=== PATIENT | male | born 1950 ===

== ENCOUNTER 2019-05-14 21:02 | Inpatient (IN) | payer MEDICARE ==
[~2019-05-14] VITALS: Ht 177.8 cm; Wt 115.6 kg
[2019-05-14] MEDS ORDERED: ACET325 PO (21:29)
[2019-05-14] MEDS ORDERED: AMLO5 PO (21:29)
[2019-05-14] MEDS ORDERED: SERT25 PO (21:29)
[2019-05-14] MEDS ORDERED: ATOR10 PO (21:30)
[2019-05-14] MEDS ORDERED: SYNTHROID175 MCG PO (21:30)
[2019-05-14] MEDS ORDERED: OMEP20ER PO (21:31)
[2019-05-14] MEDS ORDERED: CETI5 PO (21:31)
[2019-05-14] MEDS ORDERED: LISI20 PO (21:31)
[2019-05-14] MEDS ORDERED: CHOL10002 PO (21:32)
[2019-05-14 21:50] LABS: BASOPHILS ABSOLUTE AUTO 0.03 K/mm3 (0.00-0.23); BASOPHILS PERCENT AUTO 0 % (0-2); EOSINOPHILS PERCENT AUTO 0 % (0-6); Hematocrit 47.7 % (37.0-53.0); IMMATURE GRAN ABSOLUTE AUTO 0.07 K/mm3 (0.00-0.10); IMMATURE GRAN PERCENT AUTO 1 % (0-1); LYMPHOCYTES ABSOLUTE AUTO 0.76 K/mm3 (0.84-5.20); LYMPHOCYTES PERCENT AUTO 6 % (21-46); MONOCYTES ABSOLUTE AUTO 1.26 K/mm3 (0.16-1.47); MONOCYTES PERCENT AUTO 10 % (4-13); Mean Corpuscular HGB 30.8 pg (26.0-34.0); Mean Corpuscular HGB Conc 31.4 g/dL (31.5-36.5); Mean Corpuscular Volume 98 fL (80-100); Mean Platelet Volume 10.3 fL (9.1-12.4); NEUTROPHILS ABSOLUTE AUTO 10.27 K/mm3 (1.96-9.15); NEUTROPHILS PERCENT AUTO 83 % (41-73); Platelet Count 252 K/mm3 (150-400); RDW Coefficient Variation 14.5 % (11.7-14.2); RDW Standard Deviation 52.3 fL (35.1-46.3); Red Blood Cell Count 4.87 M/mm3 (4.30-5.90); White Blood Cell Count 12.39 K/mm3 (4.00-11.30)
[2019-05-14 22:07] LABS: Albumin, Blood 3.7 g/dL (3.4-5.0); Bilirubin, Total 1.4 mg/dL (0.1-1.0); Bun/Creatinine Ratio 25.4 (12.0-20.0); Calcium, Blood 8.9 mg/dL (8.5-10.1); Creatinine, Blood 1.3 mg/dL (0.60-1.20); Globulin, Blood 3.7 g/dL (2.2-4.0); Potassium, Blood 3.7 mmol/L (3.5-5.5); Total Protein, Blood 7.4 g/dL (6.4-8.2); Troponin I 0.152 ng/mL (0.000-0.040)
[2019-05-14 22:18] LABS: Source, Urine Clean Catch
[2019-05-14 22:20] LABS: Appearance, Urine Cloudy (Clear); Bilirubin, Urine Neg (Neg); Blood, Urine 5+ (Neg); Color, Urine Amber (P-Yellow); Glucose Qualitative, Urine Neg (Neg); Ketones, Urine 1+ (Neg); Leukocyte Esterase, Urine 3+ (Neg); Nitrite, Urine Neg (Neg); Protein, Urine 4+ (Neg); Urobilinogen, Urine NORM (Normal)
[2019-05-14 22:25] LABS: Red Blood Cells, Urine 0-2 /hpf (0-2); White Blood Cells, Urine TNTC /hpf (0-5)
[2019-05-14 22:26] LABS: Bacteria Many /hpf; Squamous Epithelial Cells Not Seen /hpf (Few)
[2019-05-14 23:11] LABS: Creatine Kinase MB 57.8 ng/mL (0.0-3.6); Creatine Kinase MB Index 0.8 (0.0-4.0)
--- NOTE | 2019-05-15 03:15 | NUR ---
INITIAL ASSESSMENT PATIENT ARRIVED TO UNIT AT 0240. PATIENT ALERT AND ORIENTED X 4, HOWEVER APPEARS FORGETFUL AT TIMES AND MAKES STATEMENTS THAT ARE OUT OF CONTEXT FROM CONVERSATION. PATIENT DIAPHORETIC, FLUSHED. PATIENT STATES HE HAS N/T IN ALL EXTREMITIES. PATIENT AFEBRILE. PATIENT WEAK BUT ABLE TO MOVE ALL EXTREMITIES. PATIENT COMPLAINS OF PAIN IN R SHOULDER AND LEG. PATIENT FOUND DOWN AT HOME PRIOR TO ADMIT. PATIENT HAS DISCHARGE COMING FROM EYES. PATIENT SATTING 90% AND GREATER ON 2 L NC. UPPER LOBES CLEAR, LOWER LOBES DIMINISHED TO AUSCULTATION. CRACKLES NOTED IN LLL. PATIENT STATES THAT HE HAS BEEN COUGHING UP VARIED AMOUNTS OF THICK, GREEN PHLEGM. PATIENT IN SB WITH SECOND DEGREE, TYPE 1 BLOCK. HR 40S TO 50S. SBP 190S TO LOW 200S. TRACE EDEMA NOTED IN BUES. 1+ EDEMA NOTED IN BLES. ABDOMEN MODERATELY DISTENDED, SOFT, NONTENDER, WITH HYPOACTIVE BS. PATIENT STATES LAST BM ON THE . PATIENT STATES HE SELF CATHS AT HOME AROUND 4 X PER DAY. TEMP PROBE VALDOVINOS IN PLACE AND DRAINING ADEQUATE AMOUNT OF TEA COLORED, CLOUDY URINE. PURULENT DRAINAGE NOTED FROM URETHRA. GROIN SKINFOLDS REDDENED. BRUISES SCATTERED TO BUES. ABRASION TO R SHOULDER, BILAT KNEES AND BILAT TOES. D5W INFUSING AT 100 MLS/ HOUR. PATIENT ORIENTED TO UNIT, ROOM AND CALL SYSTEM. BED LOW AND CALL LIGHT IN REACH. WILL CONTINUE TO MONITOR PATIENT FREQUENTLY T/O SHIFT.
[2019-05-15 03:19] LABS: Anion Gap 6 mmol/L (6-16); Blood Urea Nitrogen 34 mg/dL (8-24); Bun/Creatinine Ratio 32.4 (12.0-20.0); CO2, Blood 29 mmol/L (21-32); Calcium, Blood 8.6 mg/dL (8.5-10.1); Chloride, Blood 118 mmol/L (98-108); Creatinine, Blood 1.05 mg/dL (0.60-1.20); Glomerular Filtration Rate >60 (60-); Glucose, Blood 153 mg/dL (70-99); Potassium, Blood 3.7 mmol/L (3.5-5.5); Sodium, Blood 153 mmol/L (136-145)
[2019-05-15 03:29] LABS: Troponin I 0.156 ng/mL (0.000-0.040)
[2019-05-15] MEDS ORDERED: Calcium Carbon650 MG PO (03:58)
[2019-05-15 04:04] LABS: Creatine Kinase MB 38.7 ng/mL (0.0-3.6); Creatine Kinase MB Index 0.4 (0.0-4.0)
--- NOTE | 2019-05-15 04:19 | NUR ---
DR. DSOUZA CALLED AND INFORMED THAT PATIENT SBP IN 200S DESPITE EARLIER ADMINISTRATION OF PRN IV HYDRALAZINE. INFORMED THAT HR HIGH 40S TO LOW 50S. ORDER FOR NITRO DRIP RECEIVED. STATED SBP GOAL OF 160 AND THAT TO CALL HIM BACK IF HR DROPS BELOW 40.
--- NOTE | 2019-05-15 06:55 | NUR ---
SHIFT SUMMARY PATIENT SLEPT ON AND OFF SINCE ADMIT. PATIENT ABLE TO ANSWER ALL ORIENTATION QUESTIONS, HOWEVER SEEMS FORGETFUL AND MAKES STATEMENTS RANDOMLY THAT ARE OUT OF CONTEXT FROM SITUATION. PATIENT STATED THAT MOTHER 2 MONTHS AGO AND THAT IS WHO HE LIVED WITH. PATIENT REMAINED FLUSHED AND DIAPHORETIC. PATIENT REMAINED AFEBRILE. PATIENT REMAINED SATTING 90% AND GREATER ON RA TO 2 L NC. PATIENT CONTINUED TO HAVE MOIST COUGH. PATIENT REMAINED IN SB TO SR WITH 2ND DEGREE BLOCK. HR 40S TO 60S. SBP 150S TO 230S. SBP HIGHEST AT BEGINNING OF SHIFT; DOCTOR INFORMED AND NITRO DRIP STARTED. NITRO DRIP CURRENTLY INFUSING AT 60 MCG/ MINUTE. PATIENT DID NOT HAVE BM THIS SHIFT. PATIENT REMAINED NPO EXCEPT FOR WATER SWABS. TEMP PROBE VALDOVINOS REMAINED DRAINING TEA COLORED/ CLOUDY URINE. NO CHANGE IN SKIN. PATIENT HAS TO BE REMINDED TO REPOSITION SELF. D5W INFUSING AT 100 MLS/ HOUR. PATIENT HAS NO COMPLAINTS AT THIS TIME. BED LOW, CALL LIGHT IN REACH. REPORT WILL BE GIVEN TO ONCOMING DAY SHIFT NURSE SHORTLY.
--- NOTE | 2019-05-15 10:31 | NUR ---
PT CONT TO BE ON NTG AT 40 MCG AND PO HAVE BEEN GIVEN AND WILL FOLLOW RESULTS.
--- NOTE | 2019-05-15 16:33 | NUR ---
PT HAS BEEN MOVED TO ICU-6. LASIX IV GIVEN, WITH U.O. BEING VERY CONSENTRATED. PT HAS CONT TO EXPRESS SORENESS/PAIN ON R LOWER RIB BORDER. THIS IS WORSE WHEN LOCAL PRESSURE IS APPLIED BUT LESSENED WHEN LEFT ALONE. PT REMAINS UP IN CHAIR AND NAPPING DURING WHICH TIME HIS HEART RATE WILL DIP INTO THE 35-[address] HAINES HAS BEEN MADE AWARE OF PT HR STATUS AND RYTHUM TODAY. LASIX WAS GIVEN AND WILL FOLLOW OUTPUT.
--- NOTE | 2019-05-15 16:55 | NUR ---
PT UP IN CHAIR AND THEN TO BSC AND BACK X2 TODAY. PT REMAINS UP IN CHAIR AND RESTING WELL WITH BP 150/73 AND SEEM TO BE RESING WELL AT THIS TIME WITH RHYTHM REMAINING IN 40-60 RANGE AND MOBITZ I PERSISTS WITH GREATER FREQUENCY AT TIMES.
--- NOTE | 2019-05-15 20:35 | NUR ---
INITIAL ASSESSMENT PATIENT SITTING IN CHAIR NAPPING UPON ENTERING ROOM. PATIENT ALERT AND ORIENTED X 4, AFEBRILE. FLAT AFFECT NOTED. PATIENT FLUSHED AND SLIGHTLY DIAPHORETIC. PATIENT WEAK/ DECONDITIONED; 2 PERSON MAX ASSIST WITH GAITBELT AND FWW. PATIENT GIVEN PRN TYLENOL SHORT TIME AGO FOR COMPLAINT OF SOME "BURNING IN CHEST"- PATIENT NOW REPORTS RELIEF. PATIENT SATTING 90% AND GREATER ON 2 L NC. LUNGS CLEAR IN UPPER LOBES, DIMINISHED IN LOWER LOBES, WITH CRACKLES NOTED IN LLL. PATIENT REPORTS OCCASIONALLY COUGHING UP THICK, GREEN MUCUS. PATIENT IN SB TO SR WITH SECOND DEGREE BLOCK. HR 38 TO 60S. SBP 160S TO 211. NITRO DRIP RESTARTED SHORT TIME AGO AND CURRENTLY INFUSING AT 10 MCG/ MINUTE. TRACE EDEMA NOTED IN BUES. 1+ EDEMA NOTED IN BLES. ABDOMEN MODERATELY DISTENDED, PATIENT REPORTS NORMAL FOR HIM, SOFT, NONTENDER, WITH HYPOACTIVE BS. PATIENT TOLERATING CLEAR LIQUID DIET WELL THUS FAR. PATIENT NORMALLY SELF CATHS AT HOME. TEMP PROBE VALDOVINOS IN PLACE AND DRAINING TEA COLORED/ CLOUDY URINE. PURULENT DRAINAGE NOTED FROM PENIS. PATIENT HAS ABRASIONS T/O BODY FROM FALL AT HOME. BUE BRUISES NOTED. GROIN SKIN FOLDS REDDENED. D5W INFUSING AT 100 MLS/ HOUR. CALL LIGHT IN REACH. WILL CONTINUE TO MONITOR PATIENT FREQUENTLY THROUGHOUT SHIFT.
--- NOTE | 2019-05-15 23:15 | NUR ---
HTN SPOKE WITH HOSPITALIST AGUS REGARDING BP AND GIVING HYDRALAZINE AND RESTARTING NTG GTT. ASKED FOR PO MEDS. NO ORDERS RECEIVED AT THIS TIME. WILL CONT NTG GTT AND HYDRALAZINE DURING THE NIGHT AND HAVE DAY SHIFT HOSPITALIST TITRATE ORAL BP MEDS IN AM.
--- NOTE | 2019-05-16 | NUR ---
PATIENT SLEEPING SOUNDLY UPON ENTERING ROOM. PATIENT AFEBRILE. PATIENT SATTING 90% AND GREATER ON 2 L NC. PATIENT IN SR WITH SECOND DEGREE BLOCK. HR 60S TO 70S. SBP IN THE 140S. NO COMPLAINTS. NO OTHER ACUTE CHANGES TO NOTE ON AT THIS TIME. WILL CONTINUE TO MONITOR.
[2019-05-16 03:32] LABS: Hematocrit 41.7 % (37.0-53.0); Mean Corpuscular HGB 30.8 pg (26.0-34.0); Mean Corpuscular HGB Conc 31.2 g/dL (31.5-36.5); Mean Corpuscular Volume 99 fL (80-100); Mean Platelet Volume 10.2 fL (9.1-12.4); Platelet Count 229 K/mm3 (150-400); RDW Coefficient Variation 14.7 % (11.7-14.2); RDW Standard Deviation 53.5 fL (35.1-46.3); Red Blood Cell Count 4.22 M/mm3 (4.30-5.90); White Blood Cell Count 10.92 K/mm3 (4.00-11.30)
--- NOTE | 2019-05-16 04:00 | NUR ---
PATIENT SLEEPING SOUNDLY UPON ENTERING ROOM. NO COMPLAINTS. PATIENT HAS TEMP OF 99.5 DEGREES FAHRENHEIT. HR 60S TO 70S. SBP 130S TO 140S. NITRO DRIP AT 80 MCG/ MINUTE. NO OTHER ACUTE CHANGES TO NOTE ON AT THIS TIME. WILL CONTINUE TO MONITOR.
[2019-05-16 04:07] LABS: Anion Gap 6 mmol/L (6-16); Blood Urea Nitrogen 38 mg/dL (8-24); CO2, Blood 29 mmol/L (21-32); CPK Creatine Kinase 6153 U/L (39-308); Chloride, Blood 107 mmol/L (98-108); Glomerular Filtration Rate >60 (60-); Glucose, Blood 146 mg/dL (70-99); Potassium, Blood 3.4 mmol/L (3.5-5.5)
[2019-05-16 04:08] LABS: Sodium, Blood 142 mmol/L (136-145)
--- NOTE | 2019-05-16 04:37 | NUR ---
DR. DSOUZA INFORMED OF AM POTASSIUM LEVEL OF 3.4. ORDER FOR REPLACEMENT RECEIVED.
--- NOTE | 2019-05-16 07:05 | NUR ---
SHIFT SUMMARY PATIENT SLEPT ON AND OFF T/O SHIFT. PATIENT REMAINED FLUSHED AND DIAPHORETIC, HOWEVER DID DECREASE T/O SHIFT. PATIENT REMAINED WITH FLAT AFFECT. PATIENT HAD MAX TEMP OF 99.5 DEGREES FAHRENHEIT. PATIENT COMPLAINED OF CHEST AND THROAT PAIN DURING SHIFT- REPORTED RELIEF WITH PRN TYLENOL. PATIENT REMAINED SATTING 90% AND GREATER ON RA WHILE AWAKE AND 2 L NC WHILE SLEEPING. PATIENT REMAINED IN SB TO SR WITH SECOND DEGREE BLOCK. HR 38 TO 80S. SBP RANGED FROM 130S TO 211. PATIENT GIVEN 20 MG PRN IV HYDRALAZINE ONCE DURING SHIFT. NITRO DRIP RESTARTED AT BEGINNING OF SHIFT AND CURRENTLY INFUSING AT 80 MCG/ MINUTE. PATIENT DID NOT HAVE BM THIS SHIFT BUT DID HAVE FLATULENCE. PATIENT TOLERATED CLEAR LIQUID DIET WELL. PATIENT HAD GOOD AMOUNT OF TEA COLORED, CLOUDY, FOUL SMELLING URINE OUT FROM VALDOVINOS. NYSTATIN ORDERED FOR REDDENED SKIN FOLDS. PATIENT NEEDS TO BE REMINDED TO REPOSITION SELF WHILE IN BED. PATIENT RECEIVING 40 MEQ POTASSIUM FOR LEVEL OF 3.4 THIS AM. PATIENT HAS NO COMPLAINTS AT THIS TIME. BED LOW, CALL LIGHT IN REACH. REPORT HAS BEEN GIVEN TO ASSUMING DAY SHIFT NURSE.
--- NOTE | 2019-05-16 10:43 | NUR ---
PT HAS BEEN IVT DOWN OFF NTG NOTED AND PT BP IMPROVED. PT IS CURRENTLY OOB AND IN CHAIR WITH MAX SBA BUT IS ABLE TO BEAR OWN WEIGHT. PT UP TO BSC FOR SMALL BM THAT PT FEELS IS VERY URGENT. PT ABLE TO FEED SELF BUT IS NOTED TO BE QUITE SHAKE.
--- NOTE | 2019-05-16 13:53 | NUR ---
PT SETTING UP IN CHAIR HIGH FOWLERS POSITION WITH NO SLEEP APNEA AND BP SOMWHAT IMPROVED EVEN PRIOR TO PO MED CHANGES. WILL FOLLOW.
--- NOTE | 2019-05-16 14:10 | NUR ---
[facility] visit: Mr. Peraza was alone in room. I recieved an admit trigger to speak to him anne TARANGO. He was very sleepy and had trouble staying awake for long. He continued to re-awaken to voice/touch. He told me his mom 2 months ago. He lived with her and took care of her. He doesn't have any other family and is without friends. He appears severely depressed and lost in hopelessness. He seems to be a 'failure to thrive.' He identifies as Catholic, but is not connected to this kathrine community. He did not want prayer and denied need for an Advanced Directive/POLST. He could not stay awake long enough for indepth conversation about his mom and his grief. Certainly, Mr. Peraza would benefit from long-term counseling. He does not appear to have the energy or desire for this currently. I will continue to round on Mr. Peraza as schedule permits.
--- NOTE | 2019-05-16 16:30 | NUR ---
PT UP AGAIN TO BSC WITH SL LESS ASSISTANCE, VERY SMALL RESULTS AND SKIN LOOKS GOOD. VS NOTED AND RHYTHM UNCHNAGED.
--- NOTE | 2019-05-16 18:11 | NUR ---
PT INSISTS ON GETTING UP TO BSC BUT W/O RESULTS. DIGITAL EXAM DONE AND RECTAL VAULT EMPTY. PT CONT TO BE UP IN BED. VS ARE NOTED. CBG STABLE I/O NOTED WITH LOW UO AND LASIX ORDERED AND GIVEN. PT IS PLEASANT BUT SOMEWHAT FORGETFUL, DIRECTABLE HOWEVER.
--- NOTE | 2019-05-16 19:30 | NUR ---
[place] of Care: Patient alert, sitting upright in chair watching TV. Oriented to self/place, confused to time, reason for admission. At times, does not answer questions appropriately. Denies pain, discomfort, SOB, or dyspnea. O2- 90-94% on 2L/NC. Heart rhythm shows 1st degree AV block, rate 40's-60's, BP stable- systolic 150's-160's. Page cath patent and intact, draining clear yellow urine. Peripheral IV's x2 to lt arm patent and intact. Call light in reach, has uses appropriately so far this shift. Will continue to monitor for pain, comfort, safety.
[2019-05-17 03:48] LABS: Hematocrit 44.9 % (37.0-53.0); Hemoglobin 14.5 g/dL (13.5-17.5); Mean Corpuscular HGB 31.5 pg (26.0-34.0); Mean Corpuscular HGB Conc 32.3 g/dL (31.5-36.5); Mean Corpuscular Volume 98 fL (80-100); Mean Platelet Volume 10.3 fL (9.1-12.4); Platelet Count 213 K/mm3 (150-400); RDW Coefficient Variation 14.6 % (11.7-14.2); RDW Standard Deviation 53.3 fL (35.1-46.3); White Blood Cell Count 8.81 K/mm3 (4.00-11.30)
[2019-05-17 04:04] LABS: Anion Gap 5 mmol/L (6-16); Blood Urea Nitrogen 44 mg/dL (8-24); Bun/Creatinine Ratio 43.1 (12.0-20.0); CO2, Blood 29 mmol/L (21-32); Calcium, Blood 8.4 mg/dL (8.5-10.1); Chloride, Blood 105 mmol/L (98-108); Creatinine, Blood 1.02 mg/dL (0.60-1.20); Glomerular Filtration Rate >60 (60-); Glucose, Blood 137 mg/dL (70-99); Potassium, Blood 3.6 mmol/L (3.5-5.5); Sodium, Blood 139 mmol/L (136-145)
--- NOTE | 2019-05-17 06:30 | NUR ---
Shift Summary: Patient slept well throughout shift. Continues to deny pain, discomfort. C/o mild SOB after transferring to bed, otherwise denies dyspnea/SOB. Heart rhythm continues 2nd AV block type 1, rate 40's-60's, continues to be asymptomatic. Systolic PB mostly in 160's, but occasionally increased to 180's, prn Hydralazine IV given x2 with good effect noted. [id number] on RA while awake. Requires CPAP mask with 2L bleed while sleeping as O2% decreases to 80's with apneic periods. Page cath remains patent and intact, draining yellow urine with sediment. Peripheral IV's x2 remain patent and intact. Sleeping at this time. Will continue to monitor until report to day shift RN.
--- NOTE | 2019-05-17 08:00 | NUR ---
ASSUMED CARE PT ALERT AND ORIENTED. VS STABLE. O2 SATS REMAIN ABOVE 90% ON CPAP WITH 2L BLEED IN. BP ELEVATED, BUT STABLE AND IMPROVING. HEART MONITOR SHOWS 2ND DEGREE TYPE 1 WITH A RATE 40-60. PT ASYMPTOMATIC. PT REPORTS FEELING "VERY TIRED". PT REPOSITIONED PER REQUEST, BUT ABLE TO REPOSITION SELF IN BED. PT REFUSED TO GET UP TO CHAIR FOR BREAKFAST. PT ABLE TO SWALLOW PILLS WHOLE ONE AT A TIME. VALDOVINOS CATHETER PATENT AND DRAINING. PT DENIES ANY PAIN. NO OTHER REQUESTS AT THIS TIME. DISCUSSED HEART RHYTHM WITH DR. HAINES. WILL CONTNUE TO MONITOR CLOSELY.
--- NOTE | 2019-05-17 13:15 | NUR ---
REPORT GIVEN TO BERNADETTE ARMIJO. PT TAKEN BY WHEELCHAIR WITH HIS BELONGINGS.
--- NOTE | 2019-05-18 01:07 | NUR ---
PATIENT HAS NOT BEEN USING THE CALL LIGHT FOR THE LAST COUPLE OF HOURS YELLING OUT FOR HELP. STATING HE TRIED BUT IT DOES NOT WORK. SHOWED PATIENT HOW TO USE THE CALL LIGHT AGAIN. CALL LIGHT IS WORKING. PATIENT STATES HE DID DO THAT. PATIENT PUSHED BEDSIDE TABLE UP AGAINST THE WALK MAKING LARGE CRASHING NOISE ALONG WITH PUTTING FEET ON FLOOR SETTING OFF BED ALARM. PATIENT WANTING TO GET UP TO THE COMMODE. PATIENT NOT ABLE TO HAVE ANYTHING OTHER THAN SMEAR. PATIENT STATES HE NEEDS TO PEE EXPLAINED THAT HE IS PEEING INTO THE VALDOVINOS. PATIENT AGRUEMENTIVE. PATIENT ASSISTED BACK TO BED WITH TWO ASSIST. PATIENT SHAKY AND UNSTEADY ON HIS FEET.
--- NOTE | 2019-05-18 05:52 | NUR ---
PATIENT INVENTORY AND PRICING ASSOCIATE LIGHT FREQUENTLY WHEN HE REMEMBERS TO USE IT. PATIENT OFTEN CALLING WITHOUT A REASON TO CALL. PATIENT YELLING OUT WHEN HE DOESN'T REMEMBER TO USE CALL LIGHT. PATIENT UP TO COMMODE MULTIPLE TIMES. PATIENT HAS NOT SLEPT MUCH AT ALL TONIGHT. PATIENT ON CPAP FOR A SHORT PERIOD OF TIME. PATIENT GIVEN A COUPLE OF SNACKS THROUGH THE NIGHT. DENIES ANY PAIN.
--- NOTE | 2019-05-18 09:52 | NUR ---
CHEST PAIN PT WALKED TO BATHROOM & BACK TO BED WITH OT AT 0937. PT STARTED COMPLAINING OF CHEST PAIN AFTER SITTING DONE. VITALS UNCHAGED FROM THIS AM. 158/52 & HR OF 53. PT STATES THE PAIN IS NOT RADIATING & IS 5/10. PT DENIES PRESSURE. RHYTHM REMAINS THE SAME AT 2ND DEGREE BLOCK, TYPE 1. DR. HAINES CALLED & INFORMED OF EVENT. NO ORDERS GIVEN. PT DENIES SOB & SATING IN THE 90S ON RA. WILL CONTINUE TO MONITOR.
--- NOTE | 2019-05-18 11:03 | NUR ---
PT PULLED VALDOVINOS CATH AT 1030 PT WAS FOUND STANDING IN ROOM WITH BLOOD DRIPPING FROM HIS PENIS. PT HAS PULLED VALDOVINOS CATH OUT STATING HE "WAS GETTING READY TO GO HOME". PT PLACED BACK IN BED & PRESSURE APPLIED TO BASE OF PENIS FOR 15 MINUTES. SCANT AMOUNT OF DRAINAGE CONTINUE. VSS. DR. HAINES CALLED & NOTIFIED OF EVENT. DR. HAINES STATED HE WILL CALL . PT EDUCATED ON NEED TO CALL FOR HELP BEFORE GETTING OUT OF BED &LEAVING CORDS/TUBES ALONE. NO OTHER CHANGES NOTED. PT ALERT. APPROX. 200CC BLOOD LOSS ESTIMATED. WILL CONTINUE TO MONITOR.
--- NOTE | 2019-05-18 14:41 | NUR ---
DR. HAINES INTRUCTED TO REINSERT VALDOVINOS- LATE ENTRY THIS RN SPOJE WITH DR. HAINES ABOUT PT BLEEDING AT [place]. SPOKE WITH IN FLUSHING WHO SUGGESTED REPLACING THE VALDOVINOS WITH AN 18G CATHETER WITH THE IRRIGATION CAPABILITY. WILL CONTINUE TO MONITOR.
[2019-05-18 16:18] LABS: Source, Urine Catheter
[2019-05-18 16:21] LABS: Bilirubin, Urine Neg (Neg); Blood, Urine 5+ (Neg); Glucose Qualitative, Urine Neg (Neg); Ketones, Urine Neg (Neg); Leukocyte Esterase, Urine 1+ (Neg); Nitrite, Urine Neg (Neg); Protein, Urine 1+ (Neg); Urobilinogen, Urine NORM (Normal)
[2019-05-18 16:31] LABS: Appearance, Urine Clear (Clear); Color, Urine Yellow (P-Yellow)
[2019-05-18 16:32] LABS: Bacteria Few /hpf; Red Blood Cells, Urine 25-50 /hpf (0-2); Squamous Epithelial Cells Few /hpf (Few)
--- NOTE | 2019-05-18 17:14 | NUR ---
SHIFT SUMMARY PT HAS A NEW 3 WAY VALDOVINOS PLACED PER DR. HAINES ORDER. 3 WAY USED IN CASE OF IRRIGATION NEEDS. SCANT AMOUNT OF BLEEDING AT MEAT[place]. URINE DRAINING CLEAR YELLOW. PT CONTINUES TO BE BRADYCARDIAC. HR 40-60S. DR. ESPINAL PLANS TO PLACE PACEMAKER TOMORROW. PT TO BE NPO AT MIDNIGHT. NO OTHER CHANGES IN ASSESSMENT AT THIS TIME. VSS. WILL CONTIUE TO MONITOR UNTIL [place]IVER IS COMPLETE.
[2019-05-19 04:29] LABS: BASOPHILS ABSOLUTE AUTO 0.06 K/mm3 (0.00-0.23); BASOPHILS PERCENT AUTO 1 % (0-2); EOSINOPHILS ABSOLUTE AUTO 0.26 K/mm3 (0.00-0.68); EOSINOPHILS PERCENT AUTO 4 % (0-6); Hematocrit 39.7 % (37.0-53.0); Hemoglobin 12.9 g/dL (13.5-17.5); IMMATURE GRAN PERCENT AUTO 2 % (0-1); LYMPHOCYTES ABSOLUTE AUTO 1.72 K/mm3 (0.84-5.20); LYMPHOCYTES PERCENT AUTO 26 % (21-46); MONOCYTES ABSOLUTE AUTO 0.93 K/mm3 (0.16-1.47); MONOCYTES PERCENT AUTO 14 % (4-13); Mean Corpuscular HGB 31.3 pg (26.0-34.0); Mean Corpuscular HGB Conc 32.5 g/dL (31.5-36.5); Mean Corpuscular Volume 96 fL (80-100); Mean Platelet Volume 9.9 fL (9.1-12.4); NEUTROPHILS ABSOLUTE AUTO 3.53 K/mm3 (1.96-9.15); NEUTROPHILS PERCENT AUTO 54 % (41-73); Platelet Count 224 K/mm3 (150-400); RDW Coefficient Variation 14.6 % (11.7-14.2); RDW Standard Deviation 51.6 fL (35.1-46.3); Red Blood Cell Count 4.12 M/mm3 (4.30-5.90)
[2019-05-19 04:51] LABS: Anion Gap 4 mmol/L (6-16); Blood Urea Nitrogen 36 mg/dL (8-24); Bun/Creatinine Ratio 42.2 (12.0-20.0); CO2, Blood 29 mmol/L (21-32); CPK Creatine Kinase 587 U/L (39-308); Calcium, Blood 8.4 mg/dL (8.5-10.1); Chloride, Blood 106 mmol/L (98-108); Creatinine, Blood 0.85 mg/dL (0.60-1.20); Glomerular Filtration Rate >60 (60-); Glucose, Blood 142 mg/dL (70-99); Potassium, Blood 4.2 mmol/L (3.5-5.5); Sodium, Blood 139 mmol/L (136-145)
--- NOTE | 2019-05-19 06:35 | NUR ---
PATIENT SLIGHTLY CONFUSED ON AND OFF THROUGH THE NIGHT. PATIENT DID NOT ATTEMPT TO PULL OUT VALDOVINOS. PATIENT ONLY SET OFF BED ALARM ONCE THROUGH THE NIGHT. PATIENT AWARE OF PROCEDURE AND IS ANXIOUS, AND HAS NOT SLEPT. PATIENT GIVEN HYDRALAZINE ONCE FOR SBO >170.
--- NOTE | 2019-05-19 12:16 | NUR ---
PT ARRIVES FROM [facility] AFTER PACEMAKER PLACEMENT. PER REPORT HE WAS VERY HARD TO MEDICATE AND WAS GIVEN LARGE AMOUNT OF FENTANYL 200MCG. 4 ATIVAN, 5 HALL, 5 VERSED. I AM UNABLE TO ROUSE THIS PATIENT ON ARRIVAL TO PCU. HE IS GUPPY BREATHY AND SATS ARE IN THE 77% ON 6 LITERS O2. HAKEEM ZHANG IS CALLED AND HE COMES TO ROOM. CPAP IS TRIED ON PATIENT WITH MINIMAL RESULTS. HOB IS PLACED AT 90 DEGREES AND BIPAP IS PLACED ON PATIENT WITH MUCH SUCCESS. HE IS CURRENTLY SITTING AT [address]. PT DOES NOT ROUSE TO VERBAL BUT MOANS WHEN STERNAL RUB ATTEMPT. WILL CONTINUE TO MONITOR THIS PATIENT CLOSELY BY SITTING IN ROOM WITH HIM.
--- NOTE | 2019-05-19 12:36 | NUR ---
PT HAS LOW BP 77/44 AND ARE CALLED AND COMES TO ROOM. NARCAN 0.4MG IS ADMIN WITH NO RESULTS. FLUID BOLUS NS 500ML ORDERED BY . PT REMAINS UNABLE TO ROUSE. ROBIN MEDICAL SUPPORT SPECIALIST COMES TO ROOM TO ASSIST WITH CARE. TANDEM MILL STICKER MAXWELL COMES TO ROOM TO ASSIST.
--- NOTE | 2019-05-19 12:59 | NUR ---
PER CONTINUE FLUIDS FOR 1 LITER BOLUS. MONITOR BP CLOSELY. PT REMAIN ON BIPAP WHILE DIFF TO ROUSE. CBG SHOWS 172 NO COVERAGE NECESSARY. 2ND IV START LEFT UPPER SHOULDER BY BABS ARMIJO. WILL CONTINUE TO MONITOR THIS PATIENT CLOSELY.
--- NOTE | 2019-05-19 17:22 | NUR ---
END OF SHIFT; PT HAD PACEMAKER PLACEMENT TODAY BY . HE CAME BACK TO PCU VERY LETHARGIC AND WAS GIVEN NARCAN WITH MINIMAL RESULTS. HE IS CURRENTLY RESTING COMFORTABLY ON BIPAP MACHINE. RT COMES TO CHECK PATIENT OFTEN. HIS RESPS ARE VERITO CORREA. HE HAS NOT BEEN GIVEN PO MEDS THIS AFTERNOON OR CARLOS SINCE IS CURRENLTY TO SEDATE TO SWALLOW SAFELY. HIS BP IS 136 SYSTOLIC. HIS PULSE IS IN THE 60'S. RESPS ARE 16 TO 18 ON THE BIPAP. PACEMAKER SITE IS CLEAN DRY AND INTACT. SLING ON PATIENTS LEFT ARM. TWO IV'S ARE ON PT'S LEFT ARM. LUNGS ARE CLEAR TO AUSCULTATION. HE ROUSES TO PAINFULL STIMULI ONLY. OPENS EYES AND THEN GOES BACK TO SNORING RESPS. RECEIVED 1 LITER OF FLUIDS WHICH HELPED BRING PATIENT FROM 77/44 TO 136/57. HIS LUNGS ARE CLEAR AT THIS TIME. WILL CONTINUE TO MOITOR THIS PATIENT UNTIL REPORT AND HAND OFF TO [facility] SHIFT RN.
--- NOTE | 2019-05-19 19:30 | NUR ---
PATIENT UNRESPONSIVE TO VERBAL. RESPONDS TO PAIN BY MOANING. PATIENT REMAINS ON BIPAP 15/10 30% FIO2. PATIENT RESPIRATIONS 14-16 ON BIPAP.
--- NOTE | 2019-05-20 03:22 | NUR ---
PATIENT WOKE UP AND SPOKE THROUGH BIPAP, CLEARLY STATING HE WANTED A DRINK OF WATER. PATIENT TAKEN OFF BIPAP FOR A DRINK OF WATER. PATIENT ABLE TO KEEP EYES OPEN WHILE TALKING, BUT IF HE STOPPED TALKING HE EYES WOULD DROOP CLOSED. PATIENT STATES HE FEELS GROGGY. PATIENT ABLE TO REMAIN OF ROOM AIR AT 92-94% FOR A COUPLE OF MINUTES. PATIENT PLACED BACK ON BIPAP.
--- NOTE | 2019-05-20 05:28 | NUR ---
PATIENT REMAINED ON BIPAP ALL THROUGH THE NIGHT, ONLY COMING OFF ONCE T 0322. PATIENT ONLY RESPONDING TO PAIN RESPONSE AT THE BEGINNING OF THE NIGHT. PATIENT NOW RESPONDING TO LIGHT TOUCH AND NAME. CONTINUES ON BIPAP WHILE SLEEPING. NOT ABLE TO TAKE PO MEDICATIONS THROUGH OUT THE NIGHT DUE TO SEDATION LEVEL.
--- NOTE | 2019-05-20 16:01 | NUR ---
PT ROUSES AFTER BEING SOMNOLENT ALL DAY. HE ASKS FOR APPLEJUICE AND PUDDING. ALSO BANANA. HE EATS ALL AND WILL WAIT FOR DINNER NOW. HE IS AO X 3. 2LITERS NC 02. PT IS SITTING UP WATCHING TV. ASKS FOR CARTOONS OR THE NATURE CHANNEL. PT IS CHILDLIKE IN MANNERISMS. WILL CONTINUE TOMONITOR CLOSELY.
--- NOTE | 2019-05-20 17:25 | NUR ---
END OF SHIFT; PT ROUSED AND ATE SNACK LATE THIS AFTERNOON. IS CURRENTLY EATING DINNER. STILL APPEARS VERY CHILD LIKE IN HIS MANNERISMS. ASKING FOR CAKE AND ICE CREAM. ASKS FOR TV TO BE TURNED TO CARTOONS. HE IS DRINKING WATER WITHOUT STRAWS BECAUSE OF ASPIRATION RISK. HE IS ABLE TO FEED HIMSELF WITH MINIMAL ASSISTANCE. HE IS CURRENTLY ON 2 LITERS O2 VIA NASAL CANNULA. WILL REMOVE IF HIS SATS REMAIN ABOVE 90% EVEN WHILE EATING. HE HAS BEEN ACCEPTED AT [facility] AND PAPERWORK IS IN HIS CHART FOR TRANSFER TOMORROW.
--- NOTE | 2019-05-21 06:35 | NUR ---
SUMMARY: POD 2 NEW PACEMAKER INSERTION, SEPSIS, RHABDO POST FALL AT HOME ON HOSPITALIST SERVICE. VSS, AFEBRILE, 2L NC ALL NOC MAINTAINS SPO2 >92%, 100% PACED ON TELE. PT SLEPT WELL INTERMITTENTLY THIS SHIFT AFTER THOUROUGH BED BATH AND LINEN CHANGE. 3WAY VALDOVINOS REMAINS PATENT CLEAR, YELLOW URINE. CBG REQUIRED NO COVERAGE AT HS; PT SNACKED CONTINUOUSLY WHILE AWAKE. ANTICIPATE DC TO [facility] LATER THIS DAY.
[2019-05-21] MEDS ORDERED: Amoxicillin500 MG PO (11:31)
[2019-05-21] MEDS ORDERED: CHLO25B PO (11:33)
[2019-05-21] MEDS ORDERED: HYDRA25 PO (11:34)
[2019-05-21] MEDS ORDERED: HIGH POTENCY P1 EACH PO (11:35)
[2019-05-21] MEDS ORDERED: METF500C PO (11:36)
--- NOTE | 2019-05-21 12:52 | NUR ---
PT STABLE FOR DISCHARGE. REPORT CALLED TO [facility] AT [facility]. IV X2 REMOVED. PT DRESSED AND AWAITING TRANSPORT TO [facility].
[2019-07-05] MEDS ORDERED: OMEPRAZOLE MAGN20 MG PO (15:54)
[2019-07-05] MEDS ORDERED: Nitrostat0.4 MG SL (15:55)
== END 2019-05-21 13:22 | disposition home or self-care (01) | DRG 853 ==
LOC: ER 21:02 → ICUW 05-15 02:36 → PCU 05-15 02:36 → ICUE 05-15 02:36 → ICUW 05-15 02:46 → ICUE 05-15 02:46 → PCU 05-17 13:22
PROVIDERS: Emergency Medicine; Internal Medicine; Internal Medicine Cardiovascular Disease; ADMIT Internal Medicine
PROC: 0JH606Z Insertion of Pacemaker, Dual Chamber into Chest Subcutaneous Tissue and Fascia, Open Approach (ICD-10-PCS; principal; 2019-05-19)
PROC: 02HK3JZ Insertion of Pacemaker Lead into Right Ventricle, Percutaneous Approach (ICD-10-PCS; 2019-05-19)
PROC: 02H63JZ Insertion of Pacemaker Lead into Right Atrium, Percutaneous Approach (ICD-10-PCS; 2019-05-19)
DX: A41.9 Sepsis, unspecified organism (principal); J96.01 Acute respiratory failure with hypoxia; G92 Toxic encephalopathy; N17.9 Acute kidney failure, unspecified; N39.0 Urinary tract infection, site not specified; M62.82 Rhabdomyolysis; E87.0 Hyperosmolality and hypernatremia; I49.5 Sick sinus syndrome; I44.1 Atrioventricular block, second degree; I10 Essential (primary) hypertension; G47.33 Obstructive sleep apnea (adult) (pediatric); E11.9 Type 2 diabetes mellitus without complications; I34.0 Nonrheumatic mitral (valve) insufficiency; F32.9 Major depressive disorder, single episode, unspecified; W19.XXXA Unspecified fall, initial encounter; R33.9 Retention of urine, unspecified; E86.0 Dehydration; E03.9 Hypothyroidism, unspecified; Z87.891 Personal history of nicotine dependence; Z79.899 Other long term (current) drug therapy
CPT/HCPCS: 33208; 36415; 51702; 70450; 71045; 71046; 73030; 73110; 80048; 80053; 81001; 82550; 82553; 82947; 83880; 84145; 84443; 84484; 85025; 85027; 87077; 87086; 87186; 92610; 93005; 93010; 93306; 94660; 94762; 96361-59; 96365-59; 97116; 97162; 97166; 97530; 97535; 99152; 99153; 99285-25; A9270; C1769; C1785; C1898; J0360; J0456; J0690; J0696; J1630; J1644; J1650; J1940; J2060; J2250; J2310; J3010; J3480; J7030; J7040; J7050; J7070; J7120; Q9967